=== PATIENT | male | born 1975 | race Caucasian/White ===

== ENCOUNTER 2017-10-13 16:50 | Emergency (ER) | payer OTHER ==
[~2017-10-13] VITALS: Ht 170.2 cm; Wt 83.9 kg
[2017-10-13] MEDS ORDERED: PRINIVIL20 M1 PO (16:54)
[2017-10-13] MEDS ORDERED: XARELTO10 M1 PO (16:55)
[2017-10-13 18:09] LABS: URINE BILIRUBIN NEGATIVE (Negative); URINE BLOOD TRACE (Negative); URINE CLARITY CLEAR; URINE COLOR YELLOW; URINE GLUCOSE-RANDOM* NEGATIVE (Negative); URINE KETONES NEGATIVE (Negative); URINE LEUKOCYTES-REFLEX NEGATIVE (Negative); URINE NITRITE-REFLEX NEGATIVE (Negative); URINE PROTEIN (DIPSTICK) NEGATIVE (Negative); URINE SPECIFIC GRAVITY 1.015 (1.005-1.035)
[2017-10-13 18:10] LABS: HEMATOCRIT 41.3 % (42.0-52.0); HEMOGLOBIN 14.2 gm/dL (14.0-18.0); MCH 28.8 pg (26.0-34.0); MCHC 34.3 g/dL (28.0-37.0); PLATELET COUNT 197 thou/uL (150-400); RBC 4.92 mil/uL (4.50-6.00); WBC 9.3 thou/uL (4.0-11.0)
[2017-10-13 18:17] LABS: CALCIUM 8.5 mg/dL (8.5-10.1); CREATININE 1.1 mg/dL (0.7-1.3); POTASSIUM 3.6 mmol/L (3.5-5.1)
[2017-10-13 18:24] LABS: APTT 25.9 Seconds (24.5-32.8); PROTIME 10.2 Seconds (9.3-11.4)
[2017-10-13 18:40] LABS: ABSOLUTE NEUTROPHILS 7.1 thou/uL (1.4-8.2)
[2017-10-13 18:41] LABS: ANISOCYTOSIS 1+
[2017-10-13] MEDS ORDERED: REGLAN 5 MG TAB5 MG PO (19:25)
[2017-10-13 20:13] VITALS: BP 141/93
== END 2017-10-13 20:14 | disposition home or self-care (01) ==
LOC: ER 16:50
PROVIDERS: Emergency Medicine
DX: R51 Headache (principal); R26.9 Unspecified abnormalities of gait and mobility; Z79.01 Long term (current) use of anticoagulants; Z86.718 Personal history of other venous thrombosis and embolism